=== PATIENT | female | born 1935 | race Caucasian/White ===

== ENCOUNTER 2016-08-07 05:17 | Inpatient (IN) | payer BC ==
--- NOTE | ~2016-08-07 | DS ---
Discharge Summary [facility] [address] [place]. [address] NAME: AMBER CARLOS : 37 STATUS : DIS IN PAT#: [id number] AGE: 80 ADM/REG DATE : 08/07/16 MR#: [id number] REPORT SERV DATE: 08/16/16 DICTATED BY: JASEN PHAM DATE: 08/15/16 REPORT STATUS : Draft TRANSCRIBED BY: DOUGLAS DATE: 08/15/16 Data Collection from hospitalization DISCHARGE DIAGNOSES: 1. Right knee arthritis. 2. Hypertension. 3. Asthma. 4. Diabetes mellitus. CONSULTATIONS: None. PROCEDURES PERFORMED: Right total knee arthroplasty, 08/07/2016. PATHOLOGY: ( ). MEDICATIONS: Cymbalta 30 mg at bedtime, Colace 100 mg twice daily, estradiol one patch twice weekly, Zetia 10 mg at bedtime, ferrous sulfate 300 mg with breakfast and supper, Synthroid 75 mcg daily, Singulair 10 mg every evening, Theragran tablet without minerals one with breakfast, Aldactone 25 mg at bedtime, Coumadin as directed, oxycodone 5 mg one or two every 4 hours as needed, Phenergan 12.5 mg one-half to one tablet every six hours as needed, Robaxin 500 mg every 8 hours as needed for spasms. CONDITION AT DISCHARGE: Upon discharge, she did appear to be doing well and had no complaints. DISPOSITION: She had been discharged home to continue an 1800-calorie ADA diet with activity as discussed. FOLLOWUP: She was to follow up with ga in the office on 09/20/2016, [facility] for physical therapy beginning on 08/12/2016, follow up also with the [facility] for lab work beginning on 08/12/2016 while on Coumadin. HOSPITAL COURSE: This 80-year-old female was seen in the office with right knee pain. She stated that her last cortisone injection gave her only a short period of relief. She stated that she was having a hard time walking more she would like due to pain in her knee. She also stated that she had trouble with stairs, taking them one at a time. She stated that she had a number of trips planned and would like to hold off on surgery at that point. However, now she returns stating that she was ready for surgery. The risks and benefits of the procedure were discussed with the patient, she was agreeable to proceed. She was admitted for this and further evaluation. Upon admission to the hospital, she was taken to the operating room where she did undergo the above procedure. She tolerated this well and was transferred to the recovery room. On postop day #1, she did appear to be doing well and had been evaluated by Physical Therapy. She was afebrile and her vital signs were stable. Her INR was at 1.2. Hemoglobin 9.2, hematocrit 29.3. She was on sliding scale insulin level 2. Her hemoglobin and hematocrit were being monitored. On postop day #2, she had complaints of increased right leg pain and stiffness of her knee. She was instructed to take her pain medications as scheduled and use ice. Her INR was at 1.8. She was continued Discharge Summary [address] [address] NAME: AMBER CARLOS : 37 STATUS : DIS IN PAT#: [id number] AGE: 80 ADM/REG DATE : 08/07/16 MR#: [id number] REPORT SERV DATE: 08/16/16 DICTATED BY: JASEN PHAM DATE: 08/15/16 REPORT STATUS : Draft TRANSCRIBED BY: DOUGLAS DATE: 08/15/16 on supportive care. On postop day #3, she did continue to do well and appeared to be in no distress. She did remain in stable condition and was then discharged with the above instructions. Information collected by: Sydney TavarezI.T. I submit the above information as my discharge summary. BRODY/DOUGLAS Jasen Pham M.D. / [id number] CC: Holli Richards D.O.
[~2016-08-07 05:17] MED LIST: ACET500CAP PO; CYMBALTA30 PO; MINIVELLE1 EACH TOP; PRILOSEC40 MG PO; SINGULAIR1 PO; SPIRO25 PO; SYN075 PO; ZETIA PO
[2016-08-07 12:20] LABS: BUN (BLOOD UREA NITROGEN) 20 MG/DL (6-23); CALCIUM, SERUM 8.4 MG/DL (8.5-10.4); CHLORIDE, SERUM 106 MMOL/L (96-112); CO2 (CARBON DIOXIDE) 24 MMOL/L (24-34); CREATININE 0.96 MG/DL (0.55-1.02); GFR AFRICAN AMERICAN 65 ML/MIN (>=60); GFR NON AFRICAN AMERICAN 56 ML/MIN (>=60); GLUCOSE, SERUM 215 MG/DL (60-99); POTASSIUM, SERUM 4.2 MMOL/L (3.5-5.3); SODIUM, SERUM 139 MMOL/L (135-148)
[2016-08-08 06:14] LABS: HEMATOCRIT 29.3 % (36.0-48.0); HEMOGLOBIN 9.2 g/dL (12.0-16.0)
[2016-08-08 06:16] LABS: INTERNATIONAL NORMAL RATI 1.2 UNITS (-); PROTIME (NOT ORD) 14.6 SEC (12.0-14.5)
[2016-08-08 06:19] LABS: BUN (BLOOD UREA NITROGEN) 21 MG/DL (6-23); CALCIUM, SERUM 8.2 MG/DL (8.5-10.4); CHLORIDE, SERUM 104 MMOL/L (96-112); CREATININE 1.24 MG/DL (0.55-1.02); GFR AFRICAN AMERICAN 48 ML/MIN (>=60); GFR NON AFRICAN AMERICAN 41 ML/MIN (>=60); GLUCOSE, SERUM 178 MG/DL (60-99); POTASSIUM, SERUM 4.3 MMOL/L (3.5-5.3); SODIUM, SERUM 139 MMOL/L (135-148)
[2016-08-08 06:20] LABS: CO2 (CARBON DIOXIDE) 30 MMOL/L (24-34)
[2016-08-09 04:58] LABS: HEMATOCRIT 30.2 % (36.0-48.0); HEMOGLOBIN 9.5 g/dL (12.0-16.0)
[2016-08-09 05:00] LABS: INTERNATIONAL NORMAL RATI 1.8 UNITS (-)
[2016-08-09 05:02] LABS: PROTIME (NOT ORD) 20.3 SEC (12.0-14.5)
[2016-08-09 05:14] LABS: BUN (BLOOD UREA NITROGEN) 23 MG/DL (6-23); CALCIUM, SERUM 8.2 MG/DL (8.5-10.4); CHLORIDE, SERUM 101 MMOL/L (96-112); CO2 (CARBON DIOXIDE) 33 MMOL/L (24-34); CREATININE 0.97 MG/DL (0.55-1.02); GFR AFRICAN AMERICAN 64 ML/MIN (>=60); GFR NON AFRICAN AMERICAN 56 ML/MIN (>=60); GLUCOSE, SERUM 149 MG/DL (60-99); POTASSIUM, SERUM 5.1 MMOL/L (3.5-5.3); SODIUM, SERUM 136 MMOL/L (135-148)
[2016-08-10 04:25] LABS: HEMATOCRIT 30.1 % (36.0-48.0); HEMOGLOBIN 9.4 g/dL (12.0-16.0)
[2016-08-10 04:30] LABS: INTERNATIONAL NORMAL RATI 1.9 UNITS (-); PROTIME (NOT ORD) 21.8 SEC (12.0-14.5)
[2016-08-10] MEDS ORDERED: METHOC500B PO (11:39)
[2016-08-10] MEDS ORDERED: OXYCOD PO (11:40)
[2016-08-10] MEDS ORDERED: C5 PO (11:40)
[2016-08-10] MEDS ORDERED: PR12.5 PO (11:40)
== END 2016-08-10 13:28 | disposition home or self-care (01) | DRG 470 ==
LOC: SDC/OF 05:17 → PACU 09:23 → 3SO 11:15
PROVIDERS: Orthopaedic Surgery
PROC: 0SRC0J9 Replacement of Right Knee Joint with Synthetic Substitute, Cemented, Open Approach (ICD-10-PCS; principal; 2016-08-07 06:30)
DX: M17.11 Unilateral primary osteoarthritis, right knee (principal); D62 Acute posthemorrhagic anemia; E11.9 Type 2 diabetes mellitus without complications; J45.909 Unspecified asthma, uncomplicated; I10 Essential (primary) hypertension; K21.9 Gastro-esophageal reflux disease without esophagitis; F32.9 Major depressive disorder, single episode, unspecified; E03.9 Hypothyroidism, unspecified
CPT/HCPCS: 36415; 80048; 82962; 85014; 85018; 85610; 86850; 86900; 86901; 88305; 88311; 97110-GP; 97116-GP; 97162-GP; 97165-GO; A9270-GY; C1776; J0360; J0690; J1170; J1885; J2250; J2270; J2370; J2405; J2550; J2795; J3010